=== PATIENT | male | born 1995 | race Caucasian/White ===

== ENCOUNTER 2017-12-19 05:45 | Emergency (ER) | payer OTHER ==
[~2017-12-19] VITALS: Ht 175.3 cm; Wt 150.9 kg
[2017-12-19 05:49] VITALS: TEMP 36.8; Ht 175.3 cm; Wt 150.9 kg
--- NOTE | 2017-12-19 06:05 | EMERGENCY ROOM VISIT NOTE ---
History Report prepared by Esther: Pipo Coles Under the Supervision of: Dr. Rachelle Brewster D.O. First contact with patient: 05:49 Chief Complaint: ALCOHOL OVERDOSE Stated Complaint: ALCOHOL Nursing Triage Summary: pt brought to ed via ems. pt was found by an RA on campus. pt reports that he was at the [employer] [facility] earlier and drinking liquor. EMS reports that pt might have fallen. pt denies drugs. 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 Per EMS, the patient was found by his RA stumbling. They report witnesses saw the patient fall a couple of times. The patient states that he does not remember any falls. He denies any pain. He admits to alcohol use, though states this was excessive for him. HPI is limited secondary to alcohol intoxication. Source of History: patient, EMS History Limited By: intoxication (alcohol) Onset: DEHYDRATOR Position: other (general) Quality: other (alcohol intoxication) Timing: other (persistent) Note: Denies any pain. Review of Systems ROS is limited secondary to alcohol intoxication. Past Medical & Surgical Medical Problems: (1) No Known Active Medical Problems Family History No pertinent family history Social History Smoking Status: Never Smoker Alcohol Use: heavy Marital Status: single Housing Status: lives with roommate Occupation Status: [employer] student Physical Exam Vital Signs Date Time Temp Pulse Resp B/P (MAP) Pulse Ox O2 Delivery O2 Flow Rate FiO2 12/19/17 06:00 111 12/19/17 05:59 Room Air 12/19/17 05:49 36.8 120 16 163/94 99 Room Air Physical Exam General: Obese male. Smells of ETOH. Slightly slurred speech HEENT: Head - normocephalic and atraumatic Pupils are 4 mm, round, and sluggishly reactive to light. Extraocular eye muscles are intact, and sclera are anicteric. Nose - moist nasal mucosa without discharge. Mouth - moist buccal mucosa. Oropharynx is nonerythematous and there is no tonsillar exudate or edema noted. Neck: Supple; no JVD, nuchal rigidity, cervical lymphadenopathy. Heart: Regular rate and rhythm. There is a normal S1 and S2 with no murmurs, clicks, or gallops appreciated. Lungs: Clear to auscultation bilaterally with no wheezes, rales, or rhonchi. Abdomen: Soft, completely nontender, nondistended, with good bowel sounds. There are no palpable pulsatile masses or hepatosplenomegaly. There is no guarding, rigidity, or rebound noted. Extremities: No evidence of cyanosis, clubbing, or edema. There are easily palpable peripheral pulses. Skin: warm and dry with good turgor and no rashes. Medical Decision & Procedures Laboratory Results 12/19/17 06:03 Test 12/19/17 06:03 Anion Gap 7.0 mmol/L (3-11) Est Creatinine Clear Calc Drug Dose 195.9 ml/min Estimated GFR () 142.7 Estimated GFR (Non- 123.1 BUN/Creatinine Ratio 10.2 (10-20) Calcium Level 8.4 mg/dl (8.5-10.1) Ethyl Alcohol mg/dL 267.0 mg/dl (0-3) Laboratory results per my review. ED Course 0555: Past medical records reviewed. The patient was evaluated in room B11A. A complete history and physical exam was performed. The patient was placed in the prone position to avoid aspiration. They were observed on the meter tester and pulse oximeter. Labs were drawn as above 0635: I reassessed the patient at this time. He is upset about the fact that he lost his phone. 0655: I discussed the laboratory results with the patient. He was fully awake. His vital signs are stable. He has no way to contact any sober friends because he has lost his phone. He will wait in place [place] up some more and then be discharged home. 0700: The patient was signed out to Dr. Vazquez, ED at shift change. Medical Decision The patient is a 22 year old male who presents to the ED with alcohol intoxication. Differential diagnosis includes alcohol overdose, drug intoxication, head injury, and hypoglycemia. Lab results showed: Alcohol 267. Normal Glucose. Normal renal function. The patient was brought to the emergency department after consuming too much alcohol. There were no obvious signs of trauma or complaints of pain. They were observed closely throughout the night and remained stable while here in the ER. The patient was allowed time to sober up prior to discharge. I had a conversation with the patient about the hazards of such excessive alcohol use. The patient is cooperative on his stay here in the emergency department. He will be signed out to Dr. Vazquez at change of shift awaiting sobriety. Medication Reconcilliation Current Medication List: was personally reviewed by me Blood Pressure Screening Patient's blood pressure: Elevated blood pressure Blood pressure disposition: Elevated BP felt to be situational Impression Primary Impression: Alcohol overdose Scribe Attestation The scribe's documentation has been prepared under my direction and personally reviewed by me in its entirety. I confirm that the note above accurately reflects all work, treatment, procedures, and medical decision making performed by me. Departure Information Dispostion Still a Patient Patient Instructions My [facility] Problem Qualifiers Primary Impression: Alcohol overdose Encounter type: initial encounter Injury intent: accidental or unintentional Qualified Codes: T51.91XA - Toxic effect of unspecified alcohol , accidental (unintentional), initial encounter
[2017-12-19 06:46] LABS: CALCIUM 8.4 mg/dl (8.5-10.1); CREATININE 0.86 mg/dl (0.60-1.40)
--- NOTE | 2017-12-19 07:25 | EMERGENCY ROOM VISIT NOTE ---
ED Visit Note First contact with patient: 07:14 The patient was taken in signout from Dr. Brewster at the change of shift. Please see that note for details. The patient was pending clearance of intoxication. This appears to be related to an isolated overdose of alcohol. By the evaluation outlined above emergent etiologies such as trauma, infection , hypoglycemia, electrolyte abnormalities, cardiac sources, intracerebral event , neurologic,as well as others were deemed relatively unlikely. The patient was informed about the findings as listed above. All questions were answered and the patient was pleased with the treatment. Return instructions were outlined and the patient was discharged in stable condition once their mental status improved and a safe destination was confirmed.
[2017-12-19 10:24] VITALS: BP 130/80; PULSE 93; O2SAT 99
== END 2017-12-19 10:42 | disposition home or self-care (01) ==
LOC: EDBD 05:45 → C.EDB 05:49
DX: T51.0X1A Toxic effect of ethanol, accidental (unintentional), initial encounter (principal)